=== PATIENT | male | born 2000 | race Caucasian/White ===

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

== ENCOUNTER 2018-01-09 12:28 | Emergency (ER) | payer OTHER ==
--- NOTE | 2018-01-09 12:50 | EDM.PDOC ---
ED HPI GENERAL MEDICAL PROBLEM - General Chief Complaint: Behavioral/Psych Stated Complaint: SUICIDAL Time Seen by Provider: 01/09/18 12:34 - History of Present Illness INITIAL COMMENTS - FREE TEXT/NARRATIVE: HISTORY AND PHYSICAL: History of present illness: Patient is a 17-year-old white male who was brought here for medical screening exam related to recent depressive symptoms he denies suicidal or homicidal ideation he is cooperative polite and has no complaints he is here at the behest of his parents who have accompanied him. Review of systems: As per history of present illness and below otherwise all systems reviewed and negative. Past medical history: As per history of present illness and as reviewed below otherwise noncontributory. Surgical history: As per history of present illness and as reviewed below otherwise noncontributory. Social history: No reported history of drug or alcohol abuse. Family history: As per history of present illness and as reviewed below otherwise noncontributory. Physical exam: HEENT: Atraumatic, normocephalic, pupils reactive, negative for conjunctival pallor or scleral icterus, mucous membranes moist, throat clear, neck supple, nontender, trachea midline. Lungs: Clear to auscultation, breath sounds equal bilaterally, chest nontender. Heart: S1S2, regular, negative for clicks, rubs, or JVD. Abdomen: Soft, nondistended, nontender. Negative for masses or hepatosplenomegaly. Negative for costovertebral tenderness. Pelvis: Stable nontender. Genitourinary: Deferred. Rectal: Deferred. Extremities: Atraumatic, negative for cords or calf pain. Neurovascular unremarkable. Neuro: Awake, alert, oriented. Cranial nerves II through XII unremarkable. Cerebellum unremarkable. Motor and sensory unremarkable throughout. Exam nonfocal. Diagnostics: None Therapeutics: None Impression: #1 medical screening exam #2 depressive episode Definitive disposition and diagnosis as appropriate pending reevaluation and review of above. - Related Data Allergies Allergy/AdvReac Type Severity Reaction Status Date / Time No Known Allergies Allergy Verified 01/09/18 12:50 Home Meds: Home Meds . [No Known Home Meds] 02/21/17 [History] Past Medical History - Past Health History Medical/Surgical History: Denies Medical/Surgical History Social & Family History - Family History Family Medical History: Noncontributory ED ROS GENERAL - Review of Systems Review Of Systems: ROS reveals no pertinent complaints other than HPI. ED EXAM, GENERAL - Physical Exam Exam: See Below (See dictation) Course - Vital Signs Last Recorded V/S: Last Vital Signs Temp 36.7 C 01/09/18 12:47 Pulse 102 H 01/09/18 12:47 Resp 18 01/09/18 12:47 BP 124/69 01/09/18 12:47 Pulse Ox 99 01/09/18 12:47 Departure - Departure Time of Disposition: 13:07 Disposition: Home, Self-Care 01 Condition: Good Clinical Impression: Encounter for medical screening examination, Depressive episode - Discharge Information *PRESCRIPTION DRUG MONITORING PROGRAM REVIEWED*: Not Applicable *COPY OF PRESCRIPTION DRUG MONITORING REPORT IN PATIENT LIZABETH: Not Applicable Referrals: Francesca Plata NP [Primary Care Provider] - Forms: ED Department Discharge Additional Instructions: The following information is given to patients seen in the emergency department who are being discharged to home. This information is to outline your options for follow-up care. We provide all patients seen in our emergency department with a follow-up referral. The need for follow-up, as well as the timing and circumstances, are variable depending upon the specifics of your emergency department visit. If you don't have a primary care physician on staff, we will provide you with a referral. We always advise you to contact your personal physician following an emergency department visit to inform them of the circumstance of the visit and for follow-up with them and/or the need for any referrals to a consulting specialist. The emergency department will also refer you to a specialist when appropriate. This referral assures that you have the opportunity for followup care with a specialist. All of these measure are taken in an effort to provide you with optimal care, which includes your followup. Under all circumstances we always encourage you to contact your private physician who remains a resource for coordinating your care. When calling for followup care, please make the office aware that this follow-up is from your recent emergency room visit. If for any reason you are refused follow-up, please contact the [facility] emergency department at and asked to speak to the emergency department charge nurse. Follow-up with therapist and [facility] services as discussed follow-up primary medical doctor as discussed return as needed as discussed
== END 2018-01-09 13:51 | disposition home or self-care (01) ==
LOC: MW.ED 12:28
DX: F32.9 Major depressive disorder, single episode, unspecified (principal)
CPT/HCPCS: 99284

== ENCOUNTER 2020-03-21 06:12 | Emergency (ER) | payer SELFPAY ==
[2020-03-21] MEDS ORDERED: Bupivacaine 0.5% 10 ML SDV INJECT ONE (06:21)
[2020-03-21] MEDS ORDERED: Lidocaine 1% with EPINEPHrine 1:100,000 20 ML MDV INJECT ONE (06:21)
[2020-03-21] MEDS ORDERED: HYDROmorphone 2 MG/ML Syringe IVPUSH ONE (06:28)
[2020-03-21] MEDS ORDERED: Amoxicillin/Clavulanate K 875-125 MG Tab PO ONE (06:28)
[2020-03-21] MEDS ORDERED: Ondansetron 4 MG/2 ML SDV IVPUSH ONE (06:29)
[2020-03-21] MEDS ORDERED: LORazepam 2 MG/ML SDV IVPUSH ONE (06:30)
--- NOTE | 2020-03-21 06:35 | EDM.PDOC ---
<Edgard Marin - Last Filed: 03/21/20 07:05> ED HPI GENERAL MEDICAL PROBLEM - General Chief Complaint: Genitourinary Problem Stated Complaint: DOG BITE ON GROIN AREA Time Seen by Provider: 03/21/20 06:20 - History of Present Illness INITIAL COMMENTS - FREE TEXT/NARRATIVE: History of present illness: [] The patient's personal dog who is up-to-date on its shots with him in the genitalia tonight. Unprovoked attack. The patient has a hematoma in the penis and painful laceration with his testicles exposed through the scrotum. Burning pain is quite tolerable when he not moving or touching it. It is worse when it is touched. [place] pressure to urinate but did not do so before he arrived here. There is good health but p.o.-he did eat spaghetti O's at 3 AM. He does not smoke tobacco and he does not drink. Review of systems: As per history of present illness and below otherwise all systems reviewed and negative. Past medical history: As per history of present illness and as reviewed below otherwise noncontributory. Surgical history: As per history of present illness and as reviewed below otherwise noncontributory. Social history: No reported history of drug or alcohol abuse. Family history: As per history of present illness and as reviewed below otherwise noncontributory. Physical exam: Constitutional - well developed, well-nourished and in no acute distress HEENT - normocephalic, no evidence of trauma - external nose and mouth normal - no mass in neck and no JVD - mucosae moist EYES - full EOM, PERRL, no icterus - no evidence of inflammation, injection, or drainage Respiratory - no respiratory distress, equal bilateral expansion, lungs clear to auscultation and no abnormal lung sounds Cardiovascular - Regular Rhythm with S1 and S2 appreciated and no murmur, gallop or rub. GI - abdomen soft without distension or organomegaly - normal bowel sounds - no guard or rebound -there is a hematoma on the distal tip of the penis. The patient was able to urinate without difficulty. The scrotum is basically ripped sort of a coronal orientation across its entire diameter. The testicles are exposed. There does not appear to be any missing skin. The testicles are not swollen in the area is hemostatic. There is a small hematoma in the cord on the right side. Musculoskeletal no gross deformity of long bones or joints - no tenderness, swelling or edema Neurologic - Alert and oriented times four - CN II-XII grossly intact - motor sensory and coordination symmetrically normal Psychiatric - appropriate mood and affect with normal thought content Hematologic - No petechiae or purpura - mucosa appropriate color and sclera not pale - normal nail bed color and refill Integument - no rash or evidence of trauma - normal turgor Diagnostics: [] Urethrogram was going to be done but the patient was able to void and so I do not think that will be necessary. There is no urologist in [facility] so I am going to have ultrasound verify the integrity of the blood flow to the testicles then we can DISCUSS WITH UROLOGY REMOTELY Turned over to my partner at the end of my shift. Therapeutics: [] Impression: [] Plan: [] Definitive disposition and diagnosis as appropriate pending reevaluation and review of above. Testicular Pain Score (Numeric/FACES): 10 - Related Data Allergies Allergy/AdvReac Type Severity Reaction Status Date / Time No Known Allergies Allergy Verified 01/09/18 12:50 Home Meds: Home Meds . [No Known Home Meds] 02/21/17 [History] Past Medical History - Past Health History Medical/Surgical History: Denies Medical/Surgical History Psychiatric History: Reports: Anxiety, Depression Social & Family History - Family History Family Medical History: No Pertinent Family History ED ROS GENERAL - Review of Systems Review Of Systems: Comprehensive ROS is negative, except as noted in HPI. ED EXAM, GENERAL - Physical Exam Exam: See Below Free Text/Narrative:: My physical exam is in the HPI Departure - Departure Disposition: DC/Tfer to [facility] 02 Clinical Impression: Scrotal laceration Qualifiers: Encounter type: initial encounter Qualified Code(s): S31.31XA - Laceration without foreign body of scrotum and testes, initial encounter Dog bite Qualifiers: Encounter type: initial encounter Qualified Code(s): W54.0XXA - Bitten by dog, initial encounter - Discharge Information Referrals: PCP,None [Primary Care Provider] - Forms: ED Department Discharge <Julian Johnson - Last Filed: 03/21/20 08:40> Course - Vital Signs Text/Narrative:: I assumed care of this patient at [address] Marin. This is a 19-year-old male with no past medical history presenting with a dog bite injury to the genitals. Patient was at home when the family dog became excited by a verbal argument between the patient's parents. The patient was then bitten on his scrotum by the family dog. He sustained a large linear laceration spanning across the width of the scrotum with both testicles exposed. He also has a hematoma to the right side of the glans of the penis with a superficial laceration and a small amount of bleeding. He does complain of pain with urination although he is able to void. At time of shift change, patient is receiving a testicular ultrasound study from the [facility] lab technician. He has already been given oral antibiotics and pain medications. Tdap UTD in 2017 per EMR chart. I did speak with the on-call urologist at the [facility] system and Dr. Rosetta Delgado at 0710. I discussed the case with him and he recommends that the patient be transferred to a center with urology. He believes the patient will need OR washout and closure in the operating room and may need to have a cystoscopy performed. Unfortunately, [facility] has no beds. We are trying to secure transfer to another hospital that has capacity. I spoke with Dr. Chao (urology) at [facility] who agrees that the patient needs urological evaluation and likely washout and closure in the operating room. We will plan to transfer the patient by ambulance to the emergency department where he will board prior to going to the OR. I spoke with the accepting emergency physician Dr. Lindsey. We will plan for ambulance transport to the accepting facility. Scrotal ultrasound shows no abnormalities of the testicles or epididymis, did identify a probable small hematoma just inferior to the left testicle. I ordered 3 g of IV Unasyn. Patient was given additional fentanyl and morphine for pain control. Transferred to the EMS crew in good condition. Last Recorded V/S: Last Vital Signs Temp 37.1 C 03/21/20 06:24 Pulse 114 H 03/21/20 06:24 Resp 16 03/21/20 06:24 BP 145/99 H 03/21/20 06:24 Pulse Ox 98 03/21/20 06:24 - Orders/Labs/Meds Orders: Active Orders 24 hr Category Date Time Status Nothing Per Oral Diet [DIET] Diet 03/21/20 Breakfast Active Scrotum and Contents [US] Stat Exams 03/21/20 06:52 Taken Magnesium Sulfate/Water [Magnesium Sulfate in Water Med 03/21/20 07:50 Active Premix] 2 gm Premix Bag 1 bag IV ONETIME Medication Orders Magnesium Sulfate 2 gm/ Premix 50 mls @ 50 mls/hr IV ONETIME ONE Stop: 03/21/20 08:49 Last Admin: 03/21/20 08:01 Dose: 50 mls/hr Documented by: REGINALDO Labs: Laboratory Tests 03/21/20 03/21/20 03/21/20 Range/Units 06:20 06:20 06:43 WBC 10.26 (4.0-11.0) K/uL RBC 5.27 (4.50-5.90) M/uL Hgb 15.0 (13.0-17.0) g/dL Hct 46.7 (38.0-50.0) % MCV 88.6 (80.0-98.0) fL MCH 28.5 (27.0-32.0) pg MCHC 32.1 (31.0-37.0) g/dL RDW Std Deviation 41.5 (28.0-62.0) fl RDW Coeff of Criss 13 (11.0-15.0) % Plt Count 280 (150-400) K/uL MPV 10.90 (7.40-12.00) fL Neut % (Auto) 48.2 (48.0-80.0) % Lymph % (Auto) 35.5 (16.0-40.0) % [place] % (Auto) 10.0 (0.0-15.0) % Eos % (Auto) 5.9 (0.0-7.0) % Baso % (Auto) 0.4 (0.0-1.5) % Neut # (Auto) 4.9 (1.4-5.7) K/uL Lymph # (Auto) 3.6 H (0.6-2.4) K/uL [place] # (Auto) 1.0 H (0.0-0.8) K/uL Eos # (Auto) 0.6 (0.0-0.7) K/uL Baso # (Auto) 0.0 (0.0-0.1) K/uL Nucleated RBC % 0.0 /100WBC Nucleated RBCs # 0 K/uL Sodium 141 (136-148) mmol/L Potassium 3.1 L (3.5-5.1) mmol/L Chloride 103 (98-107) mmol/L Carbon Dioxide 27.2 (21.0-32.0) mmol/L BUN 16 (7.0-18.0) mg/dL Creatinine 1.1 (0.8-1.3) mg/dL Est Cr Clr Drug Dosing 102.23 mL/min Estimated GFR (MDRD) > 60.0 ml/min Glucose 112 H (74-106) mg/dL Calcium 8.6 (8.5-10.1) mg/dL Urine Color YELLOW Urine Appearance SLT CLOUDY Urine pH 6.0 (5.0-8.0) Ur Specific [place] >= 1.030 (1.001-1.035) Urine Protein NEGATIVE (NEGATIVE) mg/dL Urine Glucose (UA) NEGATIVE (NEGATIVE) mg/dL Urine Ketones NEGATIVE (NEGATIVE) mg/dL Urine Occult Blood MODERATE H (NEGATIVE) Urine Nitrite NEGATIVE (NEGATIVE) Urine Bilirubin NEGATIVE (NEGATIVE) Urine Urobilinogen 0.2 (<2.0) EU/dL Ur Leukocyte Esterase NEGATIVE (NEGATIVE) Urine RBC 6-8 (0-2/HPF) Urine WBC 0-2 (0-5/HPF) Ur Epithelial Cells RARE (NONE-FEW) Urine Bacteria RARE (NEGATIVE) SARS CoV-2 RNA Rapid SIOBHAN (NEGATIVE) 03/21/20 Range/Units 07:45 WBC (4.0-11.0) K/uL RBC (4.50-5.90) M/uL Hgb (13.0-17.0) g/dL Hct (38.0-50.0) % MCV (80.0-98.0) fL MCH (27.0-32.0) pg MCHC (31.0-37.0) g/dL RDW Std Deviation (28.0-62.0) fl RDW Coeff of Criss (11.0-15.0) % Plt Count (150-400) K/uL MPV (7.40-12.00) fL Neut % (Auto) (48.0-80.0) % Lymph % (Auto) (16.0-40.0) % [place] % (Auto) (0.0-15.0) % Eos % (Auto) (0.0-7.0) % Baso % (Auto) (0.0-1.5) % Neut # (Auto) (1.4-5.7) K/uL Lymph # (Auto) (0.6-2.4) K/uL [place] # (Auto) (0.0-0.8) K/uL Eos # (Auto) (0.0-0.7) K/uL Baso # (Auto) (0.0-0.1) K/uL Nucleated RBC % /100WBC Nucleated RBCs # K/uL Sodium (136-148) mmol/L Potassium (3.5-5.1) mmol/L Chloride (98-107) mmol/L Carbon Dioxide (21.0-32.0) mmol/L BUN (7.0-18.0) mg/dL Creatinine (0.8-1.3) mg/dL Est Cr Clr Drug Dosing mL/min Estimated GFR (MDRD) ml/min Glucose (74-106) mg/dL Calcium (8.5-10.1) mg/dL Urine Color Urine Appearance Urine pH (5.0-8.0) Ur Specific [place] (1.001-1.035) Urine Protein (NEGATIVE) mg/dL Urine Glucose (UA) (NEGATIVE) mg/dL Urine Ketones (NEGATIVE) mg/dL Urine Occult Blood (NEGATIVE) Urine Nitrite (NEGATIVE) Urine Bilirubin (NEGATIVE) Urine Urobilinogen (<2.0) EU/dL Ur Leukocyte Esterase (NEGATIVE) Urine RBC (0-2/HPF) Urine WBC (0-5/HPF) Ur Epithelial Cells (NONE-FEW) Urine Bacteria (NEGATIVE) SARS CoV-2 RNA Rapid SIOBHAN NEGATIVE (NEGATIVE) Meds: Medications Generic Name Dose Route Start Last Admin Trade Name Freq PRN Reason Stop Dose Admin Magnesium Sulfate 2 gm/ Premix 50 mls @ 50 mls/hr 03/21/20 07:50 03/21/20 08:01 IV 03/21/20 08:49 50 mls/hr ONETIME ONE Administration Discontinued Medications Generic Name Dose Route Start Last Admin Trade Name Freq PRN Reason Stop Dose Admin Amoxicillin/Clavulanate Potassium 1 tab 03/21/20 06:28 03/21/20 06:35 Augmentin 875 Mg/125 Mg PO 03/21/20 06:29 1 tab ONETIME ONE Administration Bupivacaine HCl 10 ml 03/21/20 06:21 Sensorcaine-Mpf 0.5% INJECT 03/21/20 06:22 ONETIME ONE Fentanyl 100 mcg 03/21/20 07:05 03/21/20 07:10 Fentanyl IVPUSH 03/21/20 07:06 100 mcg ONETIME ONE Administration Fentanyl Confirm 03/21/20 07:06 03/21/20 07:42 Sublimaze Administered 03/21/20 07:07 Not Given Dose 100 mcg .ROUTE .STK-MED ONE Fentanyl 100 mcg 03/21/20 07:30 03/21/20 08:08 Fentanyl IVPUSH 03/21/20 07:31 Not Given ONETIME ONE Hydromorphone HCl 1 mg 03/21/20 06:28 03/21/20 06:36 Dilaudid IVPUSH 03/21/20 06:29 1 mg ONETIME ONE Administration Ampicillin Sodium/Sulbactam 100 mls @ 200 mls/hr 03/21/20 07:55 03/21/20 08:15 Sodium 3 gm/ Sodium Chloride IV 03/21/20 08:24 200 mls/hr ONETIME ONE Administration Lidocaine/Epinephrine 20 ml 03/21/20 06:21 Xylocaine 1% With Epinephrine 1:100,000 INJECT 03/21/20 06:22 ONETIME ONE Lorazepam 0.5 mg 03/21/20 06:30 03/21/20 06:35 Ativan IVPUSH 03/21/20 06:31 0.5 mg ONETIME ONE Administration Morphine Sulfate 4 mg 03/21/20 07:27 03/21/20 07:35 Morphine IVPUSH 03/21/20 07:28 4 mg ONETIME ONE Administration Morphine Sulfate Confirm 03/21/20 07:27 03/21/20 08:06 Morphine Administered 03/21/20 07:28 Not Given Dose 4 mg .ROUTE .STK-MED ONE Ondansetron HCl 4 mg 03/21/20 06:29 03/21/20 06:35 Zofran IVPUSH 03/21/20 06:30 4 mg ONETIME ONE Administration Oxycodone HCl 10 mg 03/21/20 08:10 03/21/20 08:16 Oxycodone PO 03/21/20 08:11 10 mg ONETIME ONE Administration Potassium Chloride 60 meq 03/21/20 07:50 03/21/20 07:59 Potassium Chloride PO 03/21/20 07:51 60 meq ONETIME ONE Administration Departure - Departure Time of Disposition: 07:17 Condition: Good Sepsis Event Note (ED) - Focused Exam Vital Signs: Vital Signs Temp Pulse Resp BP Pulse Ox 03/21/20 06:24 37.1 C 114 H 16 145/99 H 98 - My Orders Last 24 Hours: My Active Orders 03/21/20 Breakfast Nothing Per Oral Diet [DIET] 03/21/20 07:50 Magnesium Sulfate/Water [Magnesium Sulfate in Water Premix] 2 gm Premix Bag 1 bag IV ONETIME - Assessment/Plan Last 24 Hours: My Active Orders 03/21/20 Breakfast Nothing Per Oral Diet [DIET] 03/21/20 07:50 Magnesium Sulfate/Water [Magnesium Sulfate in Water Premix] 2 gm Premix Bag 1 bag IV ONETIME
[2020-03-21] MEDS ORDERED: fentaNYL 50 MCG/ML SDV IVPUSH ONE ×2 (07:05→07:30)
[2020-03-21] MEDS ORDERED: fentaNYL 100 MCG/2 ML SDV ONE (07:06)
[2020-03-21] MEDS ORDERED: Morphine 4 MG/ML Syringe ONE (07:27)
[2020-03-21] MEDS ORDERED: Morphine 4 MG/ML Syringe IVPUSH ONE (07:27)
[2020-03-21 07:29] LABS: BLOOD UREA NITROGEN,BUN 16 mg/dL (7.0-18.0); CARBON DIOXIDE,CO2 27.2 mmol/L (21.0-32.0); CHLORIDE,CL 103 mmol/L (98-107); GLUCOSE RANDOM 112 mg/dL (74-106); POTASSIUM,K 3.1 mmol/L (3.5-5.1); SODIUM,NA 141 mmol/L (136-148)
--- NOTE | 2020-03-21 07:47 | US ---
INDICATION: Trauma. FINDINGS: A scrotal ultrasound shows normal size, contour, and echogenicity of the testicles with the right testicle measuring 3.1 x 3.1 x 2.4 cm and left testicle measuring 3.4 x 3.0 x 2.1 cm. Color and spectral Doppler analysis shows normal arterial venous blood flow to both testicles. Normal appearance of the epididymides. Probable small hematoma located just inferior to the left testicle. IMPRESSION: 1. No abnormalities of the testicles or epididymides identified. 2. Probable small hematoma located just inferior to the left testicle. Dictated by Onesimo Moise MD @ Mar 21 2020 7:41AM Signed by Dr. Onesimo Moise @ Mar 21 2020 7:45AM
[2020-03-21] MEDS ORDERED: Magnesium Sulfate/Water 2 GM in Premix Bag 1 BAG IV ONE (07:50)
[2020-03-21] MEDS ORDERED: Potassium Chloride 10% 20 MEQ/15 ML Soln 30 ML UD Cup PO ONE (07:50)
[2020-03-21] MEDS ORDERED: Ampicillin/Sulbactam Na 3 GM in Sodium Chloride 0.9% 100 ML IV ONE (07:55)
[2020-03-21] MEDS ORDERED: oxyCODONE 5 MG Tab PO ONE (08:10)
[2020-03-21] MEDS ORDERED: Lidocaine 2% Viscous Solution 15 ML Cup ONE (08:43)
--- NOTE | 2020-03-22 10:09 | US ---
EXAM DATE: 03/21/20 PATIENT'S AGE: 19 Patient: ELROY OLMOS Facility: [facility] Site . Site : 2000 Study: US-Testicle -03/21/2020 7:24:35 AM Ordering Physician: Tania Rene Final Report: INDICATION: Trauma. FINDINGS: A scrotal ultrasound shows normal size, contour, and echogenicity of the testicles with the right testicle measuring 3.1 x 3.1 x 2.4 cm and left testicle measuring 3.4 x 3.0 x 2.1 cm. Color and spectral Doppler analysis shows normal arterial venous blood flow to both testicles. Normal appearance of the epididymides. Probable small hematoma located just inferior to the left testicle. IMPRESSION: 1. No abnormalities of the testicles or epididymides identified. 2. Probable small hematoma located just inferior to the left testicle. Dictated by Onesimo Moise MD @ Mar 21 2020 7:41AM Signed by: Onesimo Moise MD @03/21/2020 7:45:08 AM (Electronic Signature) Report Signed by Proxy. [facility] SYSTEMJustyn
== END 2020-03-21 08:57 ==
LOC: MW.ED 06:12
DX: S31.31XA Laceration without foreign body of scrotum and testes, initial encounter (principal); Z20.828 Contact with and (suspected) exposure to other viral communicable diseases; W54.0XXA Bitten by dog, initial encounter
CPT/HCPCS: 36415; 51702; 76870; 80048; 81001; 85025; 87635; 93976; 96365; 96375; 99285; A9270; J0295; J1170; J2060; J2270; J2405; J3010; J3475; 99284; U0002